=== PATIENT | female | born 1955 | race Caucasian/White ===

== ENCOUNTER 2019-08-24 16:42 | Inpatient (IN) | payer OTHER, MEDICAID ==
[~2019-08-24] VITALS: Ht 162.6 cm; Wt 73.0 kg
[~2019-08-24 16:42] MED LIST: LR 1,000 ML IV.SOLN IV ONE; MIDAZOLAM HCL 5 MG/5 ML VIAL IVP ONE; PROPOFOL 200MG/ 20ML VIAL (DIPRIVAN) IV ONE; WATER FOR IRRIGATION,STERILE 1,000 ML IRRIG.SOLN IR ONE
[2019-08-24 16:49] VITALS: BP_SYST 118
--- NOTE | 2019-08-24 16:49 | NUR ---
Patient to ER bed 6 to gown for evaluation. Side rails up. Assumed care.
--- NOTE | 2019-08-24 17:15 | NUR ---
Patient confused BIBA from [facility] for low hemoglobin. Patient is confused. Patient has PMH of diabetes, hyperlipidemia, hypothyroidism, COPD, anxiety, schizophrenia, and bipolar disorder. Respirations even and unlabored, skin warm/pink/dry, no signs or symptoms of acute distress noted.
--- NOTE | 2019-08-24 17:23 | NUR ---
ER Dr. Padilla at bedside examining patient.
--- NOTE | 2019-08-24 17:50 | NUR ---
Radiology at bedside.
--- NOTE | 2019-08-24 18:15 | NUR ---
Attempted to perform EKG but patient is uncooperative. Dr. Padilla aware.
[2019-08-24 18:22] LABS: BASOPHILS % (AUTO) 0.9 % (0.0-2.0); EOSINOPHILS # (AUTO) 0.1 K/uL (0.0-0.4); EOSINOPHILS % (AUTO) 1.8 % (0.0-4.0); HEMATOCRIT 24.6 % (36-48); HEMOGLOBIN 8.2 g/dL (12.0-16.0); LYMPHOCYTES # (AUTO) 1.5 K/uL (1.0-5.5); LYMPHOCYTES % (AUTO) 29.6 % (20.5-51.5); MEAN CORPUSCULAR HEMOGLOBIN 32 pg (27-31); MEAN CORPUSCULAR HGB CONC 33 % (32-36); MEAN CORPUSCULAR VOLUME 97 fL (79.0-98.0); MONOCYTES # (AUTO) 0.6 K/uL (0.0-1.0); MONOCYTES % (AUTO) 12.1 % (1.7-9.3); NEUTROPHILS # (AUTO) 2.8 K/uL (1.8-7.7); NEUTROPHILS % (AUTO) 55.6 % (40.0-70.0); PLATELET COUNT (AUTO) 246 K/uL (130-430); RED BLOOD CELL COUNT(AUTO) 2.54 MIL/uL (4.2-6.2); RED CELL DISTRIBUTION WIDTH 15.6 % (9.0-15.0); WHITE BLOOD COUNT (AUTO) 5.1 K/uL (4.8-10.8)
[2019-08-24 18:23] LABS: CALCIUM 9.4 mg/dL (8.4-11.0); CREATININE 1.19 mg/dL (0.55-1.30); POTASSIUM 4.4 mmol/L (3.5-5.1)
[2019-08-24 18:29] LABS: TOTAL BILIRUBIN 0.1 mg/dL (0.0-1.0)
[2019-08-24 18:31] LABS: PROTHROMBIN TIME 10.3 SECS (9.5-12.5)
--- NOTE | 2019-08-24 18:57 | NUR ---
Patient will be admitted to care of Dr. Gould. Admitted to telemetry unit. Belongings list completed. Summary report printed. Report will be given at bedside.
[2019-08-24] MEDS ORDERED: PANTOPRAZOLE SODIUM 80 MG in NS 100 ML IV ONE (19:00)
[2019-08-24] MEDS: KCL 20 mEq in D5/0.45NS 1000mL 1,000 ML IV SCH (19:00)
[2019-08-24] MEDS ORDERED: PANTOPRAZOLE SODIUM 40 MG in NS 50 ML IV ONE (19:00)
--- NOTE | 2019-08-24 19:42 | NUR ---
ADMISSION NOTES; pt. admitted from ER with abnormal labs,Hg 7.0, Diagnosis of generalized weakness. pt. greenlandic speaking, awake, alert but not talking. oriented to her room, safety measures initiated. IV lock on left hand. placed on manager cardiac cath and remove it. pt. non compliant. VS checked by charge nurse Ty.
[2019-08-24 19:45] VITALS: BP_SYST 145
[2019-08-24 20:00] VITALS: BP_SYST 145
--- NOTE | 2019-08-24 20:45 | NUR ---
NOTES: Dr. Gould here, seen pt. aware of pt. taking off, dc monitor , will be Med surg.
--- NOTE | 2019-08-24 22:03 | NUR ---
NOTES: pt. sleeping, no complaints noted. still waiting for IVF from nursing gang supervisor, charge nurse Ty needs to print out order. Addendum: 08/25/19 at 0554 by Kari De La Cruz RN late entry 2200 pt. refused SCD.
[2019-08-24] MEDS ORDERED: GLU500 PO (22:51)
[2019-08-24] MEDS ORDERED: CALC-827 PO (22:51)
[2019-08-24] MEDS ORDERED: FER300L PO (22:51)
[2019-08-24] MEDS ORDERED: RISP0.5T5 PO (22:51)
[2019-08-24] MEDS ORDERED: DOCU250C14 PO (22:51)
[2019-08-24] MEDS ORDERED: OMEG10006 PO (22:51)
[2019-08-24] MEDS ORDERED: DIVA500T4 PO (22:51)
[2019-08-24] MEDS ORDERED: PIOG45TA63 PO (22:51)
[2019-08-24] MEDS ORDERED: FERR-69 PO (22:54)
[2019-08-24] MEDS ORDERED: LEVO25TA2 PO (22:56)
[2019-08-24] MEDS ORDERED: KCL 20 mEq in D5/0.45NS 1000mL 1,000 ML IV ONE (23:06)
[2019-08-24] MEDS: PANTOPRAZOLE SODIUM 40 MG/VIAL (PROTONIX) IVP SCH (23:41)
--- NOTE | 2019-08-25 00:08 | NUR ---
CONSULTATION PAGED REASON FOR CONSULTATION: LOWER GI BLEEDING WAS CONSULT CALLED? YES PERSON WHO WAS NOTIFIED: VALERIA CONSULTING PHYSICIAN: ORESTES MORTICIAN HELPER SPECIALTY: GASTRO MORTICIAN HELPER PHONE NUMBER: [phone] ORDERING PHYSICIAN: DR. MAN
--- NOTE | 2019-08-25 00:23 | NUR ---
NOTES: pt. awakened,incontinent of urine, complete linen changed but getting combative and does not want to touch her, remove IV tubing , site pretty swollen, unable to reinsert since she is trying to hit, charge nurse Ty aware. pt. able to stand up when linen changed. , back to bed and set alarm on. unable to put SCD, pt. removed
[2019-08-25 00:46] VITALS: BP_SYST 141
--- NOTE | 2019-08-25 02:23 | NUR ---
NOTES: condition observed. pt, sleeping, continue to monitor,
--- NOTE | 2019-08-25 03:30 | NUR ---
NOTES: been sleeping, able to turn to sides.
--- NOTE | 2019-08-25 05:15 | NUR ---
NOTES: pt. wet with urine, pad changed and gown by PERLA Dela Cruz but does not want to be cleaned, gets irritated and agitated easily, talking but unable to understand most of her words. able to go restroom with stand by assist. Addendum: 08/25/19 at 0558 by Kari De La Cruz RN noted hump on her upper back up to the neck area when she stood up,unable to assess lakisha area since pt. does not want to be touch. (ER nurse endorsed there is redness on labia area due to incontinence)
--- NOTE | 2019-08-25 06:35 | NUR ---
CLOSING NOTES; resume IVF but pulled it out after few minutes, unable to reinsert coz she wont let me touch her.bed alarm on. close observation. for further care and assistance. Addendum: 08/25/19 at 0650 by Kari De La Cruz RN late entry 0649 some bleed on IV site, refused to put gauze and pressure on site, charge nurse Ty wilson.
--- NOTE | 2019-08-25 06:54 | NUR ---
NOTES: asked electrical/instrument technician/merchandise adjustment clerk to call Dr. Gould (told charge nurse Dida), will endorse to day shift.
--- NOTE | 2019-08-25 06:57 | NUR ---
NOTES: Dr. Gould called back and inform about pt. refusal of reinserting another one, said to put it back, will need 2 people to insert the IV. will endorse to day shift.
[2019-08-25 07:07] LABS: BASOPHILS % (AUTO) 0.2 % (0.0-2.0); EOSINOPHILS # (AUTO) 0.1 K/uL (0.0-0.4); HEMATOCRIT 26.6 % (36-48); LYMPHOCYTES # (AUTO) 1.5 K/uL (1.0-5.5); LYMPHOCYTES % (AUTO) 26.9 % (20.5-51.5); MEAN CORPUSCULAR HEMOGLOBIN 33 pg (27-31); MEAN CORPUSCULAR HGB CONC 34 % (32-36); MEAN CORPUSCULAR VOLUME 97 fL (79.0-98.0); MONOCYTES # (AUTO) 0.6 K/uL (0.0-1.0); MONOCYTES % (AUTO) 9.9 % (1.7-9.3); NEUTROPHILS # (AUTO) 3.4 K/uL (1.8-7.7); PLATELET COUNT (AUTO) 288 K/uL (130-430); RED BLOOD CELL COUNT(AUTO) 2.74 MIL/uL (4.2-6.2); RED CELL DISTRIBUTION WIDTH 16.1 % (9.0-15.0); WHITE BLOOD COUNT (AUTO) 5.6 K/uL (4.8-10.8)
--- NOTE | 2019-08-25 07:15 | NUR ---
RECEIVED REPORT AT THE BEDSIDE. BY THE IAN NURSE. PATIENT SPEAKS MOHAWK BUT GARBLED. LUNGS BILATERALLY CLEAR. ABDOMEN SOFT AND NON DISTENDED. BUT NO IV ACCESS NOTED. QUITE AND RESTING. BED LOW POSITION, ALARMED AND LOCKED. PATIENT QUITE WHEN NOT TOUCHED. CALL LIGHTS WITHIN REACH. PATIENT SPEAKS MOHAWK ONLY. NO SKIN BREAKDOWN NOTED. BOTH ARMS EDEMATOUS PLUS 1-2 NON PITTING NOTED.
[2019-08-25 07:41] LABS: CALCIUM 9.7 mg/dL (8.4-11.0); CREATININE 1.15 mg/dL (0.55-1.30); POTASSIUM 4.4 mmol/L (3.5-5.1)
[2019-08-25 07:43] VITALS: BP_SYST 139
--- NOTE | 2019-08-25 08:20 | NUR ---
NO DUE MEDICATION GIVEN AT THIS TIME. NO IV ACCESS NOTED.
[2019-08-25 08:39] LABS: TOTAL IRON BIND. CAPACITY 635 ug/dL (250-450)
--- NOTE | 2019-08-25 08:40 | NUR ---
DR MAN CALLED FOR RESTRAINT ORDER AND MEDICATION FOR AGITATION.
--- NOTE | 2019-08-25 08:54 | NUR ---
Nutrition Update Kvng Scale 16 noted. Pt admitted for lower GI bleed and anemia. Diet: NPO BMI: 27.5 kg/m2 RD to follow per nutrition care standards.
[2019-08-25] MEDS ORDERED: LORazepam 2 MG/ML VIAL IVP PRN (09:00)
--- NOTE | 2019-08-25 09:00 | NUR ---
DR UNGER CAME AND ORDERED TO HAVE UPPER ENDOSCOPY AND COLONOSCOPY TOMORROW AND NEEDS A CONSENT AND ANESTHESIA CONSENT.
--- NOTE | 2019-08-25 09:30 | NUR ---
NO DUE MEDICATION GIVEN AT THIS TIME.
--- NOTE | 2019-08-25 10:00 | NUR ---
CALLED FAMILY SAID WILL COME TO SIGNED FOR THE PROCEDURE IN AM
--- NOTE | 2019-08-25 11:00 | NUR ---
PLACED SCDS ON BOTH LEGS.
[2019-08-25 11:32] VITALS: BP_SYST 124
[2019-08-25 11:48] LABS: PROTHROMBIN TIME 10.4 SECS (9.5-12.5)
[2019-08-25 12:27] VITALS: BP_SYST 124
--- NOTE | 2019-08-25 12:34 | NUR ---
PLACED A NEW IV ACCESS ON THE LEFT HAND #22.
--- NOTE | 2019-08-25 14:00 | NUR ---
still on restraints bilaterally. assists on adls.
--- NOTE | 2019-08-25 15:00 | NUR ---
consent signed for upper endoscopy and colonoscopy tomorrow. and anesthesia consent signed as ordered by roberto turner
--- NOTE | 2019-08-25 16:18 | NUR ---
Net Developer: Met with pt. for a DCPA. GEOSCIENCES FACULTY MEMBER met with pt and pts. brother Per Lombardo, . Per was helpful as pt. was algerian speaking but additionally, she was not able to participate in this interview due to her mental status. Per stated Pt. can carry on a conversation. Pt. has Schizophrenia. Re. meds, Per stated pt will take her medicine if someone gives it to her. He stated pt. will probably return to her home at [facility]. Per was very attentive to pt asking if she was ok, needed anything. He stated he will come to see pt. tomorrow after work. GEOSCIENCES FACULTY MEMBER stated he could call the Rn. station to get an update of pts. procedures scheduled for tomorrow morning as per brother Per. MW will remain available as needed.
[2019-08-25] MEDS: KCL 20 mEq in D5/0.45NS 1000mL 1,000 ML IV SCH ×2 (16:32→23:45)
[2019-08-25] MEDS: PANTOPRAZOLE SODIUM 40 MG/VIAL (PROTONIX) IVP SCH ×2 (16:40→21:31)
[2019-08-25] MEDS ORDERED: BISACODYL 5 MG TABLET.DR (DULCOLAX) PO ONE (17:00)
--- NOTE | 2019-08-25 17:00 | NUR ---
dulcolax 2 tabs po given. brother still here.
--- NOTE | 2019-08-25 17:20 | NUR ---
started the mago po.
--- NOTE | 2019-08-25 17:42 | NUR ---
refusing to eat at this time.
[2019-08-25 17:45] VITALS: BP_SYST 132
--- NOTE | 2019-08-25 17:54 | NUR ---
called the brother Chema but no answer, the line is busy.
[2019-08-25] MEDS ORDERED: GOLYTELY / COLYTE SOLUTION 4 LITERS PO ONE (18:00)
--- NOTE | 2019-08-25 18:32 | NUR ---
called the brother but refused to answer. karol phoenix and micah tried to fed her, but refused.
--- NOTE | 2019-08-25 18:35 | NUR ---
closing notes: patient alert awake but confused and refusing to have clear liquid tonite. refused the golytely po. but started. still on bilateral wrist restraints. all needs are met. still with iv access on the left hand #22. with D51/2NS with 20meq of Kcl. at 75cc/hr infusing on well. bed in low position, alarmed and locked. will continue to monitor patients status.
--- NOTE | 2019-08-25 19:05 | NUR ---
OPENING NOTES RECEIVED PATIENT IN BED RESTING. BREATHING UNLABORED ON ROOM AIR. IVF INFUSING ORDERED. PATIENT ON BILATERAL SOFT WRIST RESTRAINTS FOR AGGRESSIVE BEHAVIOR. BED IN LOWEST LOCKED POSITION WITH ALARM ON. CALL LIGHT WITH IN REACH.
[2019-08-25 20:43] VITALS: BP_SYST 146
--- NOTE | 2019-08-25 21:31 | NUR ---
MED PASS PATIENT DUE MEDICATION GIVEN. IV LINE INTACT PATENT WITH GOOD BLOOD RETURN. VITAL SIGNS STABLE.
[2019-08-25] MEDS ORDERED: INSULIN REGULAR, HUMAN 100 UNITS/ML, 10 ML VIAL (humuLIN R) SUBCUT PRN (22:00)
--- NOTE | 2019-08-25 22:30 | NUR ---
HS CARE INCONTINENCE CARE DONE. PATIENT STILL REFUSING TO TAKE GOLYTELY. EVERY TIME A CUP OF GOLYTELY IS OFFERED PATIENT WOULD STRIKE AND HIT STAFF.
--- NOTE | 2019-08-25 23:00 | NUR ---
MD CALLED DR. UNGER CALLED CHECKING ON PATIENT BOWEL PREP. MD MADE AWARE PATIENT REFUSING GOLYTELY. ORDERED TO INSERT NASOGASTRIC TUBE AND GIVE GOLYTELY VIA NGT.
[2019-08-26] MEDS ORDERED: LORazepam 2 MG/ML VIAL IVP SCH (00:15)
[2019-08-26 00:36] VITALS: BP_SYST 135
--- NOTE | 2019-08-26 01:00 | NUR ---
NGT UNABLE TO INSERT NGT PATIENT RESISTING AND AGGRESSIVE TO STAFF EVEN AFTER ATIVAN ADMINISTRATION. OFFERED GOLYTELY TO DRINK STILL REFUSING.
--- NOTE | 2019-08-26 01:25 | NUR ---
MD CALLED DR UNGER AND MADE AWARE UNABLE TO INSERT NGT. PER MD HE CANT DO COLONOSCOPY LATER TODAY IF PT NOT PREP WILL JUST DO EGD. NO NEED TO GIVE TAP WATER ENEMA TILL CLEAR PER .
--- NOTE | 2019-08-26 03:08 | NUR ---
ROUNDS PATIENT RESTING. NO DISTRESS NOTED. IVF INFUSING.
--- NOTE | 2019-08-26 05:15 | NUR ---
AM CARE PATIENT HAD LARGE PASTY STOOL. AM CARE DONE. ALL LINENS CHANGED.
[2019-08-26 05:49] LABS: PROTHROMBIN TIME 10.4 SECS (9.5-12.5)
[2019-08-26] MEDS: LEVOTHYROXINE SODIUM 0.088 MG TABLET PO SCH (06:28)
--- NOTE | 2019-08-26 06:41 | NUR ---
CLOSING NOTES PATIENT RESTING IN BED. BREATHING UNLABORED ON ROOM AIR. DENIES PAIN THROUGHOUT SHIFT. IVF INFUSING WITH IV LINE INTACT AND PATENT. PATIENT NEEDS ATTENDED. BED IN LOWEST LOCKED POSITION WITH ALARM ON. CALL LIGHT WITH IN REACH.
--- NOTE | 2019-08-26 07:10 | NUR ---
received report at the bedside. by the jaron nurse. patient combative and agitated. alert and awake but confused. lungs bilaterally clear. breathing even and unlabored. still has iv access on the left hand #22 with IV fluids of D51/2NS +20kcl at 75cc/hr infusing on well. has another iv access left wrist #22. saline lock. no skin breakdown noted. both arms edematous x 1-2 non pitting edema noted. will continue to monitor patients status.
[2019-08-26] MEDS ORDERED: SIMETHICONE 40 MG/0.6 ML ML ONE (07:24)
--- NOTE | 2019-08-26 07:30 | NUR ---
patient pickling grader by gi crew for upper endoscopy. spoke to dr cora mejia. and said will not do colonoscopy due to patient uncooperativeness. refused to drink the golyletyly.
[2019-08-26] MEDS ORDERED: LR 1,000 ML IV SCH (08:02)
[2019-08-26 08:35] VITALS: BP_SYST 111
[2019-08-26 08:37] LABS: FOLATE (FOLIC ACID) 18.5 ng/mL (>3.0)
[2019-08-26] MEDS: DOCUSATE SODIUM 250 MG CAPSULE PO SCH (09:00)
[2019-08-26] MEDS: DIVALPROEX SODIUM 500 MG TAB.SR.24H (DEPAKOTE ER) PO SCH ×2 (09:00→21:00)
--- NOTE | 2019-08-26 09:00 | NUR ---
po medication not given patient refusing.
--- NOTE | 2019-08-26 10:00 | NUR ---
due medication given at this time.
[2019-08-26] MEDS: PANTOPRAZOLE SODIUM 40 MG/VIAL (PROTONIX) IVP SCH ×2 (11:05→21:26)
--- NOTE | 2019-08-26 12:00 | NUR ---
able to eat about 60% of food and fed by Bindu Smith
[2019-08-26] MEDS: KCL 20 mEq in D5/0.45NS 1000mL 1,000 ML IV SCH (12:09)
[2019-08-26 12:21] VITALS: BP_SYST 112
--- NOTE | 2019-08-26 14:18 | NUR ---
patient has still bilateral wrist restraint. both arms.
--- NOTE | 2019-08-26 15:45 | NUR ---
had bowel movement large amount greenish blackish. clean up no skin breakdown noted.
[2019-08-26 16:06] VITALS: BP_SYST 119
--- NOTE | 2019-08-26 17:13 | NUR ---
quite but trying to moved about and raised both arms and legs and trying to removed iv lines and scds. and refused to eat foods.
--- NOTE | 2019-08-26 17:46 | NUR ---
Dietitian Recommendations * Continue clear liquid diet with Ensure Clear TID (720 kcal/day and 24 gm protein/day). * Advance to regular diet if/when medically appropriate. * Encourage PO intake. CRISTIAN, ROMELIA Please refer to Nutrition Assessment for details. Signed: 08/26/19 at 1746 by Shireen BATISTA <Co-Signature Required> Co-Signed: 08/26/19 at [address] Addendum: 08/26/[id number] by Shireen BATISTA Amended: Links added.
--- NOTE | 2019-08-26 18:04 | NUR ---
latest bs 75mg/dl. no insulin coverage and refusing to be fed and eat. called the brother. but no answer yet
--- NOTE | 2019-08-26 18:36 | NUR ---
still offered the food for dinner refused.
--- NOTE | 2019-08-26 18:57 | NUR ---
dr sandoval came and informed what happened with the patient no iv access and said will call dr krishnamurthy regarding changing iv to po Addendum: 08/26/19 at 1943 by Amy Liu RN NOT THIS PATIENT. THANKS
--- NOTE | 2019-08-26 19:00 | NUR ---
PLEASE INFORMED REGARDING THE PATIENT NOT EATING. BUT EAT LUNCH TIME. 80% OF FOOD TAKEN. AND COLONOSCOPY NOT DONE TO PATIENT VERY UNCOOPERATIVE.
--- NOTE | 2019-08-26 19:30 | NUR ---
SBAR REPORT GIVEN TO NU AYOUB.
--- NOTE | 2019-08-26 19:35 | NUR ---
OPENING NOTES Patient resting, eyes closed, restraints in place. No signs of respiratory distress observed. IV in Right hand patent, no signs of inflammation or infiltration observed. SCDs on. Call light within reach, bed alarm on, and bed at lowest position. Will continue to monitor.
[2019-08-26 20:00] VITALS: BP_SYST 129
--- NOTE | 2019-08-26 21:41 | NUR ---
Patient refused medications. Patient teaching performed, but patient confused and started to swing arms even when on restraints and will not allow for glucose check as well. Will check blood sugar when patient is less agitated. Will continue to monitor.
--- NOTE | 2019-08-26 22:02 | NUR ---
Perineal care performed and blood sugar of 116, no insulin provided per sliding scale. No signs of respiratory distress at this time. Safety precautions in place. Will continue to monitor.
[2019-08-26] MEDS ORDERED: IRON SUCROSE COMPLEX 100 MG/5 ML VIAL IV ONE (23:15)
[2019-08-26] MEDS: IRON SUCROSE COMPLEX 100 MG in NS 100 ML IV SCH (23:40)
--- NOTE | 2019-08-27 00:13 | NUR ---
Patient is restless, kicking her feet. Patient has eyes closed, restraints in place, 10 minutes of relief provided. Safety precautions in place. Will continue to monitor.
--- NOTE | 2019-08-27 00:43 | NUR ---
CONSULTATION PAGED/CALLED Reason for Consultation: PSYCHOSIS Person Who was Notified: ISI Consulting Physician: GUERO, SENT OUT TO [facility] Cash Applications Coordinator Specialty: Ordering Physician: MAGDA
--- NOTE | 2019-08-27 02:40 | NUR ---
Patient is resting, HOB elevated. no signs of acute respiratory distress observed. Safety precautions in place. Will continue to monitor.
[2019-08-27] MEDS: KCL 20 mEq in D5/0.45NS 1000mL 1,000 ML IV SCH ×2 (03:42→14:57)
--- NOTE | 2019-08-27 04:16 | NUR ---
Perineal care provided, patient pinches and kicks even with patient orientation and thorough explanations. Patient also tries to hit with head. Restraints in place. Patient now clean and linens changed. Patient offered liquids like ensure or water, and patient refuses. IVF running, no signs of inflammation or infiltration at IV site. SCDs in place. Safety precautions in place. Will continue to monitor.
[2019-08-27 04:25] VITALS: BP_SYST 133
--- NOTE | 2019-08-27 06:02 | NUR ---
Blood sugar of 137, no insulin provided per sliding scale. Patient is not cooperative and is swinging arms and kicks feet when trying to give water or ensure. Unable to provide PO medications. Will endorse care to oncoming shift.
[2019-08-27] MEDS: LEVOTHYROXINE SODIUM 0.088 MG TABLET PO SCH (06:03)
--- NOTE | 2019-08-27 06:12 | NUR ---
Ayesha from LAB called to report that patient's blood had hemolyzed so another specimen will be taken. Will endorse to next shift.
[2019-08-27 06:27] LABS: BASOPHILS % (AUTO) 0.6 % (0.0-2.0); EOSINOPHILS # (AUTO) 0.1 K/uL (0.0-0.4); EOSINOPHILS % (AUTO) 1.2 % (0.0-4.0); HEMATOCRIT 28.2 % (36-48); HEMOGLOBIN 9.5 g/dL (12.0-16.0); LYMPHOCYTES % (AUTO) 19.4 % (20.5-51.5); MEAN CORPUSCULAR HEMOGLOBIN 33 pg (27-31); MEAN CORPUSCULAR HGB CONC 34 % (32-36); MEAN CORPUSCULAR VOLUME 98 fL (79.0-98.0); MONOCYTES # (AUTO) 0.5 K/uL (0.0-1.0); MONOCYTES % (AUTO) 9.7 % (1.7-9.3); NEUTROPHILS # (AUTO) 3.4 K/uL (1.8-7.7); NEUTROPHILS % (AUTO) 69.1 % (40.0-70.0); PLATELET COUNT (AUTO) 269 K/uL (130-430); RED BLOOD CELL COUNT(AUTO) 2.89 MIL/uL (4.2-6.2)
--- NOTE | 2019-08-27 07:15 | NUR ---
Note Dr Nina at bedside. Pt refuses to answer any questions and aggressive behavior assessed at this time.
--- NOTE | 2019-08-27 07:30 | NUR ---
CLOSING NOTES Patient is resting, eyes open. No signs of acute respiratory distress. Restraints in place. Safety precautions in place. Will endorse care to oncoming shift.
[2019-08-27 07:47] VITALS: BP_SYST 150
[2019-08-27] MEDS: DIVALPROEX SODIUM 500 MG TAB.SR.24H (DEPAKOTE ER) PO SCH ×2 (09:00→21:55)
[2019-08-27] MEDS: DOCUSATE SODIUM 250 MG CAPSULE PO SCH (09:00)
--- NOTE | 2019-08-27 09:15 | NUR ---
Note Pt refuses any breakfast or to take any of her PO medications at this time. restraints on bilateral wrists. No SOB/resp distress or pain/discomfort noted at this time. IV in left forearm intact and patent infusing well at this time. No needs noted at this time. Pt drowsy all shift. Call light within reach.
[2019-08-27] MEDS: PANTOPRAZOLE SODIUM 40 MG/VIAL (PROTONIX) IVP SCH ×2 (09:35→21:46)
--- NOTE | 2019-08-27 10:01 | NUR ---
ATTENDING MD DR Rasta EPPERSON WAS PAGED RE: PT REFUSED ECHO TEST, LABS AND MEDICATIONS INTAKE. SPOKE TO KEELEY. Addendum: 08/27/19 at 1007 by Sarika Kam RI/ ERASE ---WRONG PT INTENDED FOR 132C
--- NOTE | 2019-08-27 11:10 | NUR ---
Note Dr Gould was made aware that pt refusing PO medications and breakfast. Dr Monzon came to bedside at 1040am to do assessment at this time. Pt next to nurses' station for close observation all shift foe needs and care. Sitter in room. Call light within reach.
[2019-08-27 12:00] VITALS: BP_SYST 132
[2019-08-27 13:34] LABS: CALCIUM 8.7 mg/dL (8.4-11.0); CREATININE 1.09 mg/dL (0.55-1.30); FREE T4 (FREE THYROXINE) 0.7 ng/dl (0.8-1.5); PHOSPHORUS 3.2 mg/dL (2.7-4.5); POTASSIUM 4.2 mmol/L (3.5-5.1); THYROID STIMULATING HORMONE 10.27 uIu/mL (0.36-3.74)
--- NOTE | 2019-08-27 14:55 | NUR ---
Note Dr Gould on the floor and at pt's bedside. Again notified pt refuses to take any PO medications or eat any breakfast/lunch. Pt continues to pull at IV lines and bed clothes all the time. IVF's infusing well all shift through left forearm IV site. No needs noted at this time.
--- NOTE | 2019-08-27 15:42 | NUR ---
Discharge Planning: DCP faxed pt referral to [facility] (f [phone] p [phone]) DCP to follow up
[2019-08-27 17:16] VITALS: BP_SYST 135
--- NOTE | 2019-08-27 17:29 | NUR ---
Note Pt still refuses to eat or drink any food. Pt shakes her head "no" to everything. No needs noted at this time. IV in left forearm intact and patent infusing IVF's well. Pt has had soft wrist restraints on bilateral wrists all shift.
--- NOTE | 2019-08-27 18:25 | NUR ---
Note Pt ate 50% of her dinner tray - maximum assist. Pt resting in bed at this time. Received a call from Yehuda at this time from [facility]. They will accept pt back to facility tomorrow morning after 11am. Person to contact will be Tam [phone]. mdm sr - Coty made aware of transfer back to [facility] in the am. Pt was given hygiene care for urine incontinence. No needs noted at this time. Pt had sitter at bedside all shift for needs and care. Call light within reach.
[2019-08-27 20:30] VITALS: BP_SYST 125
--- NOTE | 2019-08-27 20:30 | NUR ---
Opening notes Pt asleep, easily arousable. VSS, no s/s distress noted. IVF infusing at ordered rate L. hand 22G clear and patent. Call light within reach. Bed low, locked, siderails up, bed alarm on. Pt placed close to nursing station. To monitor.
[2019-08-27] MEDS: IRON SUCROSE COMPLEX 100 MG in NS 100 ML IV SCH (21:46)
--- NOTE | 2019-08-27 21:49 | NUR ---
Med pass/Blood sugar check Pt awake, calm, pt HOB elevated and scheduled meds given with jello, pt tolerated well. Blood sugar checked 134, no insulin needed per ss protocol. To monitor.
[2019-08-28 00:42] VITALS: BP_SYST 149
--- NOTE | 2019-08-28 01:27 | NUR ---
Rounds Pt asleep, easily arousable, calm. No s/s distress noted. IVF infusing at ordered rate L hand 22G no s/s infiltration noted. Safety measures in place. To monitor.
[2019-08-28] MEDS: KCL 20 mEq in D5/0.45NS 1000mL 1,000 ML IV SCH ×3 (03:00→23:47)
--- NOTE | 2019-08-28 03:30 | NUR ---
F/U influenza vaccine Called [facility] [phone] to f/u if pt had flu shot and per staff office is closed at this time. To endorse to AM nurse.
--- NOTE | 2019-08-28 04:35 | NUR ---
Rounds Pt asleep, no s/s distress noted. Call light within reach. Bed low, locked, siderails up. To monitor.
--- NOTE | 2019-08-28 06:00 | NUR ---
Closing notes Pt awake, confused, calm. Restraints DC'd. No s/s distress noted. IVF infusing at ordered rate L hand 22G clear and patent. Pt incontinent of urine. Pericare and linens changed with WRAPPING CHECKER assist. Pt refused SCDs at this time. Call light within reach. Safety measures in place, bed alarm on. To endorse to AM nurse.
[2019-08-28] MEDS: LEVOTHYROXINE SODIUM 0.088 MG TABLET PO SCH (06:36)
--- NOTE | 2019-08-28 08:00 | NUR ---
RN INITIAL NOTES RECEIVED PATIENT IN BED NO DISTRESS PATIENT IS ANXIOUS AND IRRITABLE , PATIENT WRIST RESTRAIN REMOVED WITH 2 IV LINE TO LEFT HAND INFUSING WITH KCL INC ORDERED WILL CONT CARE WILL CALL SNF TO VERIFY FLU VACCINE AND AWAITING FOR MD TO GIVE DC ORDER BACK TO SNF
[2019-08-28] MEDS: DOCUSATE SODIUM 250 MG CAPSULE PO SCH ×2 (09:00→09:40)
[2019-08-28] MEDS: DIVALPROEX SODIUM 500 MG TAB.SR.24H (DEPAKOTE ER) PO SCH ×3 (09:00→23:47)
[2019-08-28] MEDS: PANTOPRAZOLE SODIUM 40 MG/VIAL (PROTONIX) IVP SCH ×2 (09:39→23:47)
[2019-08-28] MEDS ORDERED: FLU VACC TS2019(65UP)/MF59C/PF 45 MCG/0.5 ML SYRINGE I.M. PRN (09:45)
--- NOTE | 2019-08-28 10:00 | NUR ---
FLU VACCINE GIVEN / REFUSAL PO MEDS PATIENT BROTHER DARIELA CALLED AND UPDATED FOR PATIENT CONDITION AND STATED PATIENT DID NOT HAVE FLU VACCINE FOR THE FACILITY MAY GIVE NOW , ALSO PATIENT REFUSED FLU VACCINE Addendum: 08/28/19 at 1137 by Mely Amador RN CORRECTION PATIENT REFUSED PO MEDS BUT ABLE TO GIVE FLU VACCINE AND IV MEDS AWAITING FOR MD ROUNDS FOR DC PLANNING
[2019-08-28 12:19] VITALS: BP_SYST 145
[2019-08-28 12:24] VITALS: BP_SYST 111
--- NOTE | 2019-08-28 12:30 | NUR ---
REFUSAL OF BLOOD SUGAR CHECK PATIENT REFUSED TO HAVE BLOOD SUGAR CHECK
--- NOTE | 2019-08-28 14:00 | NUR ---
ROUNDS PATIENT INTERMITTENTLY AWAKE AND NO FACIAL GRIMACE NOTED
--- NOTE | 2019-08-28 16:00 | NUR ---
ASLEEP STILL WAITING FOR THE ROUNDS OF DR MAN CHARGE NURSE MADE AWARE CONT WITH KCL IVF
[2019-08-28 16:53] VITALS: BP_SYST 135
--- NOTE | 2019-08-28 18:02 | NUR ---
Nutrition Follow Up RD reviewed pt's current EMR including diet hx, physician notes, nursing notes, pertinent labs/meds/procedures, care trends and care activity. Current diet order: Clear Liquid x 2 days PO intake 25% x 3 meals, 1 episode of refusal Subjective Information: Pt is s/p EGD 08/26, found mild gastritis per physician notes. Per MD, colonoscopy not recommended at this time. Per nursing, pt is not tolerating diet well, refusing meds. Seen by psychiatry 08/27. Pt seen resting in bed, not verbally responsive to RD questions. Ensure Clear noted at bedside, with about 25% consumed. No nausea, vomiting, or diarrhea at this time per nursing. RD will hold off on appetite stimulant recommendation due to refusal of meds. Estimated Energy Expenditure (kcals/day) 9161-1757 kcal/day (25-30 kcal/kg ABW for geriatric maintanence) Estimated Protein Required (g/day) 59-71 gm/day (1-1.2 gm/kg ABW for geriatric maintenance) Estimated Fluid Required (l/day) 2.2-2.6 L/day (30-35 ml/kg CBW for geriatric maintanence) Problem/Etiology/Signs/Symptoms Suboptimal PO intake related to lack of appetite as evidenced by PO intake of 0% and RN report pt is not eating. *improving Expected Outcomes/Goals - Monitor appetite and PO intake w/ goals of pt meeting greater than 50% of estimated nutritional needs, labs trending WNL, and skin integrity/wt maintenance. Dietitian Recommendations * Continue clear liquid diet with Ensure Clear TID (720 kcal/day and 24 gm protein/day). * Advance to regular diet if/when medically appropriate. * Encourage PO intake. * If PO intake does not improve at follow up, consider NGT Jevity 1.2 at 45ml/hr with 160ml FWF Q4H Provides 1296kcal, 60gPro, 1832ml fluids per day. Meets: 88% of lower end of kcal est nutrition needs, 100% of protein est nutrition needs. Follow Up High Risk: F/U in 2-3days LT, RD
--- NOTE | 2019-08-28 18:05 | NUR ---
REFUSAL OF BLOOD SUGAR CHECK /ENDORSEMENT PATIENT REFUSED TAKE ANOTHER PM BLOOD SUGAR CHECK , PATIENT SPITTING AND SHOUT AT ME, WILL CONT TO MONITOR CAN"T TOUCH THE PATIENT AT THIS TIME SHE IS ANGRY AND REFUSED TO EAT A THIS TIME , WILL COTNWITH IVF ORDERED AND NOTIFY MD ON ROUNDS
--- NOTE | 2019-08-28 18:19 | NUR ---
Dietitian Recommendations * Continue clear liquid diet with Ensure Clear TID (720 kcal/day and 24 gm protein/day). * Advance to regular diet if/when medically appropriate. * Encourage PO intake. * If PO intake does not improve at follow up, consider NGT Jevity 1.2 at 45ml/hr with 160ml FWF Q4H Provides 1296kcal, 60gPro, 1832ml fluids per day. Meets: 88% of lower end of kcal est nutrition needs, 100% of protein est nutrition needs. Please see Nutrition Follow Up for details. LT, RD
[2019-08-28 20:59] VITALS: BP_SYST 137
--- NOTE | 2019-08-28 21:40 | NUR ---
ENCOURAGE REPOSITION & TURNING OFF LOADING PATIENT REFUSE CARE FALL MEASURES IMPLEMENTED BED ALARM ON FOR SAFETY .
--- NOTE | 2019-08-28 22:45 | NUR ---
NEW IV LEFT F/A 22 GAUGE PATIENT DOES REFUSE BEDSIDE CARE BED ALARM ON .
[2019-08-28] MEDS: IRON SUCROSE COMPLEX 100 MG in NS 100 ML IV SCH (23:48)
[2019-08-29] VITALS (7 sets, daily range): BP systolic 124–146
--- NOTE | 2019-08-29 | NUR ---
REFUSAL , RIP IV OUT LEFT F/A PROCEDURES EXPLAINED , PATIENT YELLING OUT .
--- NOTE | 2019-08-29 00:12 | NUR ---
BSG BLOOD SUGAR GLUCOSE 120 mg dl , ENSURE DRINK GIVEN PO assist as needed .
--- NOTE | 2019-08-29 03:11 | NUR ---
HOURLY ROUNDING PATIENT AWAKE ON AND OFF DOES REFUSE CARE AT TIMES BED TO LOW POSITION , ALARM IS ON .
[2019-08-29] MEDS: LEVOTHYROXINE SODIUM 0.088 MG TABLET PO SCH (06:18)
--- NOTE | 2019-08-29 06:19 | NUR ---
patient yelling out & Refuse AM MEDICATIONS .
[2019-08-29 06:36] LABS: BASOPHILS % (AUTO) 0.6 % (0.0-2.0); EOSINOPHILS # (AUTO) 0.1 K/uL (0.0-0.4); HEMATOCRIT 29.1 % (36-48); HEMOGLOBIN 9.7 g/dL (12.0-16.0); LYMPHOCYTES # (AUTO) 1.1 K/uL (1.0-5.5); MEAN CORPUSCULAR HEMOGLOBIN 32 pg (27-31); MEAN CORPUSCULAR HGB CONC 33 % (32-36); MEAN CORPUSCULAR VOLUME 97 fL (79.0-98.0); MONOCYTES # (AUTO) 0.8 K/uL (0.0-1.0); NEUTROPHILS % (AUTO) 71.4 % (40.0-70.0); PLATELET COUNT (AUTO) 286 K/uL (130-430); RED BLOOD CELL COUNT(AUTO) 2.99 MIL/uL (4.2-6.2); RED CELL DISTRIBUTION WIDTH 15.7 % (9.0-15.0)
[2019-08-29 07:08] LABS: CALCIUM 8.7 mg/dL (8.4-11.0); POTASSIUM 4.3 mmol/L (3.5-5.1)
--- NOTE | 2019-08-29 08:00 | NUR ---
RN INITIAL NOTES RECEIVED PATIENT IN BED AWAKE BUT SNUBBISH SHE JUST NOD HERSELF AND TURNED HER FACE AWAY WHEN BEING TALKED TO , IVF TO LEFT ARM INFUSING KCL ORDERED UNABLE TO ASSESSED PATIENT AT THIS TIME DT COMBATIVE WHEN TOUCHED PATIENT SAID NO TO PO MEDS BUT ABLE TO GIVE PROTONIX IV , WILL CONTINUE TO MONITOR REFUSED SCD APPLICATION AND REFUSED BREAKFAST TOOK A SMALL SIPS OF SUPPLEMENT THEN SAID NO , RESP EVEN AND UNLABORED RISE AND FALL OF THE CHEST NOTED NO ACUTE DISTRESS AT THIS TIME, AWAITING FOR THE DR TO COME VISIT PATIENT
[2019-08-29] MEDS: DIVALPROEX SODIUM 500 MG TAB.SR.24H (DEPAKOTE ER) PO SCH ×2 (09:00→21:35)
[2019-08-29] MEDS: DOCUSATE SODIUM 250 MG CAPSULE PO SCH (09:00)
[2019-08-29] MEDS: PANTOPRAZOLE SODIUM 40 MG/VIAL (PROTONIX) IVP SCH ×2 (09:33→21:35)
--- NOTE | 2019-08-29 11:38 | NUR ---
ATTENDING MD DR ELDER WAS CALLED RE: DISCHARGE ORDER, PT HAS BED . SPOKE TO BEAR
--- NOTE | 2019-08-29 11:53 | NUR ---
REFUSAL OF BLOOD SUGAR PATIENT REFUSED BLOOD SUGAR CHECK NO S/S OF HYPO/HYPERGLYCEMIC REACTION
--- NOTE | 2019-08-29 14:00 | NUR ---
DR GEM WHITMAN ORDERED FOR THE STAT UA WITH IN AND OUT COLLECTION ,PRIOR PATIENT DC TO SNF AND MADE AWARE THAT PATIENT, SENT UA TO LAB,WILL START PO ATB
[2019-08-29 15:23] LABS: BILIRUBIN,URINE NEGATIVE (NEGATIVE); CLARITY/URINE CLEAR (CLEAR); COLOR,URINE YELLOW (YELLOW); GLUCOSE,URINE NEGATIVE (NEGATIVE); KETONES,URINE NEGATIVE (NEGATIVE); LEUKOCYTE ESTERASE ,URINE 2+ (NEGATIVE); NITRITE, URINE POSITIVE (NEGATIVE); PROTEIN URINE NEGATIVE (NEGATIVE)
[2019-08-29 15:25] LABS: BLOOD, URINE TRACE (NEGATIVE)
[2019-08-29 15:31] LABS: BACTERIA,URINE MANY /HPF (None Seen); MUCUS,URINE 1+ /LPF (None Seen); WBC,URINE >100 /HPF (0-3); YEAST,URINE Few /HPF (None Seen)
[2019-08-29] MEDS ORDERED: CIPROFLOXACIN HCL 500 MG TABLET PO ONE (16:00)
[2019-08-29] MEDS ORDERED: CIPR-211 PO (16:41)
--- NOTE | 2019-08-29 17:30 | NUR ---
dc order pt has a discharge order, follow up with caser in, Libby said, she will call us once arrangement made to snf.
--- NOTE | 2019-08-29 18:13 | NUR ---
D/C PLANNING RECEIVED CM ORDER FOR D/C SNF PATIENT FROM [facility] SPOKE WITH SOFTWARE APPLICATIONS DEVELOPER AND ADMISSIONS MARIA ISABEL PHONE NUMBER [phone] REQUESTED REFAX TO [phone]. HE WILL REVIEW AND CALL NURSES STATION WITH ROOM NUMBER.
--- NOTE | 2019-08-29 18:52 | NUR ---
ENDORSEMENT WILL ENDORSE TO NEXT SHIFT CONT CARE 'PATIENT IS AWAITING FOR THE CALL OF SNF , PER CHARGE NURSE SNF WILL [facility] BACK ONCE PATIENT IS OK TO BE TRANSFERRED BACK TO SNF , INFORMED DR ELDER THAT PATIENT STILL HERE AND TOOK HALF OF THE CIPRO PO ATB BUT SAID GO AHEAD DC PATIENT TO SNF WILL ENDORSE TO NEXT SHIFT TO FOLLOW UP CALL TO SNF , AT THIS TIME UNABLE TO RESTART IV ACCESS BEC PATIENT PULLED IV 3 X ALREADY , SHE ALSO SPIT AND SHOUTS , WILL ENDORSE TO NEXT SHIFT TO CONT CARE .
--- NOTE | 2019-08-29 20:56 | NUR ---
RE - INSERTION IV LEFT F/A 22 G PATIENT IS AGITATED BED ALARM ON PATIENT YELLING OUT FALL MEASURES INPLACE / .
--- NOTE | 2019-08-29 20:57 | NUR ---
FREQUENT VISUAL MONITOR FOR SAFETY FALL MEASURES BED ALARM IS ON .
[2019-08-29] MEDS: CIPROFLOXACIN HCL 500 MG TABLET PO SCH (21:34)
[2019-08-29] MEDS: IRON SUCROSE COMPLEX 100 MG in NS 100 ML IV SCH (21:36)
[2019-08-29] MEDS: KCL 20 mEq in D5/0.45NS 1000mL 1,000 ML IV SCH (21:38)
--- NOTE | 2019-08-30 01:46 | NUR ---
PATIENT YELLING OUT KICKING OUT DID PULL OUT IV , THROUGH LININ ON FLOOR FREQUENTLY .
--- NOTE | 2019-08-30 01:47 | NUR ---
DR JERROD WHITMAN IS AWARE PATIENT REFUSE IV & PULLING RIP IV OUT .
--- NOTE | 2019-08-30 05:08 | NUR ---
RANDIIN CHANGE PATIENT YELLING OUT SPITING REFUSING CARE , BED ALARM ON SAFETY MEASURES IMPLEMENTED .
[2019-08-30] MEDS: LEVOTHYROXINE SODIUM 0.088 MG TABLET PO SCH (05:56)
--- NOTE | 2019-08-30 05:57 | NUR ---
PATIENT REFUSED AM MEDS YELLING OUT , SPITING .
--- NOTE | 2019-08-30 07:45 | NUR ---
Opening note patient resting in bed, a/ox1, reoriented to time, place, and event, she denies pain, patient did not allow for full assessment of skin, patient refused vital signs at this time, provided education, she still refuses, no IV line present, patient is refusing, according to NOC shift nurse MD is aware of this, continuing to follow up with discharge planning, continuing to monitor the patient, bed in lowest position, three side rails up, bed alarm on, bed close to nursing station, fall and aspiration precautions in place.
--- NOTE | 2019-08-30 08:26 | NUR ---
RN rounds/patient refusing care patient resting in bed, awake, refusing breakfast, refuses vital signs to be taken, refusing assistance, continuing to monitor, bed in lowest position, three side rails up, bed alarm on, bed close to nursing station, fall and aspiration precautions in place.
[2019-08-30] MEDS: DOCUSATE SODIUM 250 MG CAPSULE PO SCH (09:00)
[2019-08-30] MEDS: PANTOPRAZOLE SODIUM 40 MG/VIAL (PROTONIX) IVP SCH (09:00)
[2019-08-30] MEDS: DIVALPROEX SODIUM 500 MG TAB.SR.24H (DEPAKOTE ER) PO SCH (09:00)
[2019-08-30] MEDS: CIPROFLOXACIN HCL 500 MG TABLET PO SCH (09:34)
[2019-08-30 09:50] VITALS: BP_SYST 131
--- NOTE | 2019-08-30 10:36 | NUR ---
RN rounds/DC planning patient resting in bed, awake, denies pain, refusing to eat breakfast still, refusing vital signs, continuing to monitor, following up with DC planning for SNF for today, paged for med rec back to SNF, will follow up, patient bed in lowest position, three side rails up, bed alarm on, bed close to nursing station, fall and aspiration precautions in place.
--- NOTE | 2019-08-30 10:47 | NUR ---
Spoke with Dr. Luis Fernando romo to discharge the patient back to SNF, continue home medications.
--- NOTE | 2019-08-30 10:54 | NUR ---
Discharge Planning: DCP arranged transportation with [facility] ([phone]) 12:45pm P/U to [place] (f [phone] p [phone]) Rm 6C. Patient packet taken to nurse station nurse made aware.
[2019-08-30 12:00] VITALS: BP_SYST 131
--- NOTE | 2019-08-30 12:05 | NUR ---
RN rounds patient resting in bed, prepared for discharge back to SNF, attempted to call the family, no answer, voicemail left at this time, patient blood glucose checked, no insulin coverage per MD orders, continuing to monitor, bed in lowest position, two side rails up, bed alarm on, bed close to nursing station, fall and aspiration precautions in place.
--- NOTE | 2019-08-30 12:12 | NUR ---
Attempt to call family called the patient's brother Per (second attempt) - left one voicemail - [phone] called the patient's sister Maya (first attmept) - could not leave voicemail - [phone] needing to inform of discharge to facility Addendum: 08/30/19 at 1218 by Wayne Rodney RN Per called back, informed him of discharge, he is agreeable.
--- NOTE | 2019-08-30 12:45 | NUR ---
Called Report to [facility], spoke with Gladis AYOUB - [phone].
--- NOTE | 2019-08-30 13:47 | NUR ---
PT TRANSFERRED Transfer packet with Transfer Orders and Medication Reconciliation form given to EMT with report. Exitcare provided. [facility] ID band removed, replaced with ID band with pt's name and . All belongings sent with patient. Patient left floor via gurney escorted by EMT in no distress. PATIENT LEFT UNIT AT 1325.
== END 2019-08-30 13:25 | DRG 378 ==
LOC: SED 16:42 → STU 18:54 → SMU 22:05
PROVIDERS: ADMIT Family Medicine; ATTEND Family Medicine
PROC: 0DB98ZX Excision of Duodenum, Via Natural or Artificial Opening Endoscopic, Diagnostic (ICD-10-PCS; 2019-08-26)
PROC: 0DB78ZX Excision of Stomach, Pylorus, Via Natural or Artificial Opening Endoscopic, Diagnostic (ICD-10-PCS; principal; 2019-08-26 07:30)
DX: K29.71 Gastritis, unspecified, with bleeding (principal); E44.1 Mild protein-calorie malnutrition; F03.90 Unspecified dementia, unspecified severity, without behavioral disturbance, psychotic disturbance, mood disturbance, and anxiety; F20.9 Schizophrenia, unspecified; E11.9 Type 2 diabetes mellitus without complications; J44.9 Chronic obstructive pulmonary disease, unspecified; K21.9 Gastro-esophageal reflux disease without esophagitis; D50.9 Iron deficiency anemia, unspecified; E03.9 Hypothyroidism, unspecified; M19.90 Unspecified osteoarthritis, unspecified site; Z78.1 Physical restraint status; Z68.27 Body mass index [BMI] 27.0-27.9, adult; Z79.899 Other long term (current) drug therapy
CPT/HCPCS: 36415; 71045; 80048; 80053; 81000-TC; 82607; 82728; 82746; 82962; 83540-TC; 83550-TC; 83735-TC; 84100-TC; 84439; 84443-TC; 85025; 85610-TC; 85730-TC; 86886; 86900; 86901; 87081; 88305; 88312; 88313; 99285; C9113; J1756; J1815; J2060; J2250; J2704; J7120

== ENCOUNTER 2023-02-13 13:23 | Inpatient (IN) | payer OTHER, MEDICAID ==
[~2023-02-13] VITALS: Ht 154.9 cm; Wt 68.0 kg
[~2023-02-13 13:23] MED LIST changes: +CALC-827 PO; +CIPR500T5 PO; +DIVA500T4 PO; +DOCU250C14 PO; +FERR-69 PO; +GLU500 PO; +LEVO25TA2 PO; -LR 1,000 ML IV.SOLN IV ONE; -MIDAZOLAM HCL 5 MG/5 ML VIAL IVP ONE; +OMEG10006 PO; +PIOG45TA63 PO; -PROPOFOL 200MG/ 20ML VIAL (DIPRIVAN) IV ONE; +RISP0.5T5 PO; -WATER FOR IRRIGATION,STERILE 1,000 ML IRRIG.SOLN IR ONE
[2023-02-13 13:25] VITALS: BP_SYST 114
[2023-02-13] MEDS ORDERED: CRAN450T9 PO (14:14)
[2023-02-13] MEDS ORDERED: RISP0.5T5 PO (14:14)
[2023-02-13 16:14] LABS: BILIRUBIN,URINE NEGATIVE (NEGATIVE); BLOOD, URINE NEGATIVE (NEGATIVE); CLARITY/URINE CLEAR (CLEAR); COLOR,URINE YELLOW (YELLOW); GLUCOSE,URINE NEGATIVE (NEGATIVE); KETONES,URINE NEGATIVE (NEGATIVE); LEUKOCYTE ESTERASE ,URINE NEGATIVE (NEGATIVE); NITRITE, URINE NEGATIVE (NEGATIVE); PH,URINE 6.5 (5.0-8.0); PROTEIN URINE NEGATIVE (NEGATIVE); UROBILINOGEN,URINE 0.2 (0.2-1.0)
[2023-02-13 16:27] LABS: BASOPHILS % (AUTO) 0.8 % (0.0-2.0); EOSINOPHILS % (AUTO) 0.5 % (0.0-4.0); LYMPHOCYTES # (AUTO) 0.8 K/uL (1.0-5.5); LYMPHOCYTES % (AUTO) 15.7 % (20.5-51.5); MEAN CORPUSCULAR HEMOGLOBIN 25 pg (27-31); MEAN CORPUSCULAR HGB CONC 31 % (32-36); MEAN CORPUSCULAR VOLUME 79 fL (79.0-98.0); MONOCYTES # (AUTO) 0.5 K/uL (0.0-1.0); MONOCYTES % (AUTO) 9.3 % (1.7-9.3); NEUTROPHILS # (AUTO) 3.7 K/uL (1.8-7.7); NEUTROPHILS % (AUTO) 73.7 % (40.0-70.0); PLATELET COUNT (AUTO) 282 K/uL (130-430); RED BLOOD CELL COUNT(AUTO) 2.56 MIL/uL (4.2-6.2); RED CELL DISTRIBUTION WIDTH 16.6 % (9.0-15.0)
[2023-02-13 16:28] LABS: BARBITURATE, URINE NEGATIVE (NEG <=200); BENZODIAZEPINE, URINE NEGATIVE (NEG <=150); CANNABINOID, URINE NEGATIVE (NEG <=50); COCAINE, URINE NEGATIVE (NEG <=150); METHAMPHETAMINES SCREEN,URINE NEGATIVE (NEG <=500); OPIATE, URINE NEGATIVE (NEG <=100); PHENCYCLIDINE SCREEN,URINE NEGATIVE (NEG <=25); UR TRICYCLIC ANTIDEPRESSANTS NEGATIVE (NEG <=300); URINE AMPHETAMINE NEGATIVE (NEG <=500); URINE METHADONE NEGATIVE (NEG <=200); URINE OXYCODONE SCREEN NEGATIVE (NEG <=100); URINE PROPOXYPHENE SCREEN NEGATIVE (NEG <=300)
[2023-02-13 16:36] LABS: HEMATOCRIT 20.2 % (36-48); HEMOGLOBIN 6.3 g/dL (12.0-16.0)
[2023-02-13 16:43] LABS: ANION GAP 7 (5-15); CALCIUM 8.1 mg/dL (8.4-11.0); CHLORIDE 100 mmol/L (98-107); CREATININE 1.24 mg/dL (0.55-1.30); GFR AFRICAN AMERICAN 55 mL/min (>90); GLUCOSE 98 mg/dL (70-99); UREA NITROGEN, BLOOD 29 mg/dL (8-21)
[2023-02-13 16:44] LABS: PROTHROMBIN TIME 10.8 SECS (9.5-12.5)
[2023-02-13 16:50] LABS: ALANINE AMINOTRANSFERASE 10 U/L (12-78); ALBUMIN 2.8 g/dL (3.4-4.8); ALCOHOL, BLOOD 5 mg/dL (<10); ASPARTATE AMINOTRANSFERASE 8 U/L (10-37); TOTAL BILIRUBIN 0.1 mg/dL (0.0-1.0)
[2023-02-13 17:01] LABS: FREE T4 (FREE THYROXINE) 1.2 ng/dL (0.6-1.6); THYROID STIMULATING HORMONE 0.76 uIu/mL (0.34-4.82)
[2023-02-13 22:15] VITALS: BP_SYST 129
[2023-02-13] MEDS ORDERED: HALOPERIDOL LACTATE 5 MG/ML VIAL IM ONE ×2 (22:45)
[2023-02-13] MEDS ORDERED: LORazepam 2 MG/ML VIAL IM ONE (23:30)
[2023-02-14 02:38] VITALS: BP_SYST 140
[2023-02-14 05:41] LABS: BASOPHILS % (AUTO) 0.6 % (0.0-2.0); EOSINOPHILS # (AUTO) 0.1 K/uL (0.0-0.4); EOSINOPHILS % (AUTO) 1.6 % (0.0-4.0); HEMATOCRIT 26.2 % (36-48); HEMOGLOBIN 8.4 g/dL (12.0-16.0); LYMPHOCYTES # (AUTO) 1.1 K/uL (1.0-5.5); LYMPHOCYTES % (AUTO) 23.3 % (20.5-51.5); MEAN CORPUSCULAR HEMOGLOBIN 26 pg (27-31); MEAN CORPUSCULAR HGB CONC 32 % (32-36); MEAN CORPUSCULAR VOLUME 80 fL (79.0-98.0); MONOCYTES # (AUTO) 0.6 K/uL (0.0-1.0); MONOCYTES % (AUTO) 12.1 % (1.7-9.3); NEUTROPHILS # (AUTO) 2.9 K/uL (1.8-7.7); NEUTROPHILS % (AUTO) 62.4 % (40.0-70.0); PLATELET COUNT (AUTO) 290 K/uL (130-430); RED BLOOD CELL COUNT(AUTO) 3.28 MIL/uL (4.2-6.2); RED CELL DISTRIBUTION WIDTH 16.3 % (9.0-15.0); WHITE BLOOD COUNT (AUTO) 4.7 K/uL (4.8-10.8)
[2023-02-14 06:12] LABS: CALCIUM 8.7 mg/dL (8.4-11.0); CREATININE 1.05 mg/dL (0.55-1.30)
[2023-02-14 06:23] VITALS: BP_SYST 130
[2023-02-14 06:25] LABS: TOTAL IRON BIND. CAPACITY 613 ug/dL (250-450)
[2023-02-14] MEDS: LEVOTHYROXINE SODIUM 0.088 MG TABLET PO SCH (06:31)
[2023-02-14 08:00] VITALS: BP_SYST 104
[2023-02-14] MEDS ORDERED: NON-FORMULARY MEDICATION (Cranberry Fruit (Cranberry) 1 TAB) PO SCH (09:00)
[2023-02-14] MEDS: MEGESTROL ACETATE 400 MG/10 ML UDC PO SCH ×2 (10:12→21:56)
[2023-02-14] MEDS: DOCUSATE SODIUM 250 MG CAPSULE PO SCH ×2 (10:13→21:56)
[2023-02-14] MEDS: DIVALPROEX SODIUM 125 MG CAP.(DEPAKOTE SPRINKLE) PO SCH ×2 (10:13→21:56)
[2023-02-14] MEDS: FERROUS SULFATE 325 MG TABLET.DR PO SCH ×2 (10:14→21:56)
[2023-02-14] MEDS: KCL 20 mEq in D5/0.45NS 1000mL 1,000 ML IV SCH ×2 (10:20→10:54)
[2023-02-14 11:31] VITALS: BP_SYST 133
[2023-02-14 15:28] VITALS: BP_SYST 113
[2023-02-14 20:00] VITALS: BP_SYST 113
[2023-02-15] VITALS: BP_SYST 127
[2023-02-15] MEDS: KCL 20 mEq in D5/0.45NS 1000mL 1,000 ML IV SCH ×2 (00:30→15:07)
[2023-02-15] MEDS: LEVOTHYROXINE SODIUM 0.088 MG TABLET PO SCH (06:56)
[2023-02-15 08:00] VITALS: BP_SYST 127
[2023-02-15 08:07] LABS: BASOPHILS # (AUTO) 0.1 K/uL (0.0-0.2); BASOPHILS % (AUTO) 0.4 % (0.0-2.0); EOSINOPHILS % (AUTO) 0.4 % (0.0-4.0); HEMATOCRIT 29.6 % (36-48); HEMOGLOBIN 9.5 g/dL (12.0-16.0); LYMPHOCYTES # (AUTO) 1.3 K/uL (1.0-5.5); LYMPHOCYTES % (AUTO) 10.3 % (20.5-51.5); MEAN CORPUSCULAR HEMOGLOBIN 26 pg (27-31); MEAN CORPUSCULAR HGB CONC 32 % (32-36); MEAN CORPUSCULAR VOLUME 81 fL (79.0-98.0); MONOCYTES # (AUTO) 0.8 K/uL (0.0-1.0); MONOCYTES % (AUTO) 6.9 % (1.7-9.3); NEUTROPHILS # (AUTO) 10.1 K/uL (1.8-7.7); PLATELET COUNT (AUTO) 266 K/uL (130-430); RED BLOOD CELL COUNT(AUTO) 3.63 MIL/uL (4.2-6.2); RED CELL DISTRIBUTION WIDTH 17.1 % (9.0-15.0)
[2023-02-15 08:11] LABS: CALCIUM 8.5 mg/dL (8.4-11.0); CREATININE 1.03 mg/dL (0.55-1.30)
[2023-02-15 08:51] LABS: WHITE BLOOD COUNT (AUTO) 12.3 K/uL (4.8-10.8)
[2023-02-15] MEDS: MEGESTROL ACETATE 400 MG/10 ML UDC PO SCH ×2 (09:36→20:56)
[2023-02-15] MEDS: FERROUS SULFATE 325 MG TABLET.DR PO SCH ×2 (09:37→20:57)
[2023-02-15] MEDS: DIVALPROEX SODIUM 125 MG CAP.(DEPAKOTE SPRINKLE) PO SCH ×2 (09:37→20:57)
[2023-02-15] MEDS: DOCUSATE SODIUM 250 MG CAPSULE PO SCH (09:42)
[2023-02-15 10:06] LABS: FOLATE (FOLIC ACID) 19.1 ng/mL (>3.0)
[2023-02-15 11:42] VITALS: BP_SYST 139
[2023-02-15 18:01] VITALS: BP_SYST 136
[2023-02-15 20:00] VITALS: BP_SYST 128
[2023-02-15] MEDS: DOCUSATE SODIUM 100 MG/10 ML UDC PO SCH (20:56)
[2023-02-16] VITALS: BP_SYST 131
[2023-02-16] MEDS: KCL 20 mEq in D5/0.45NS 1000mL 1,000 ML IV SCH ×2 (02:20→15:34)
[2023-02-16] MEDS: LEVOTHYROXINE SODIUM 0.088 MG TABLET PO SCH (06:15)
[2023-02-16 08:09] LABS: BASOPHILS # (AUTO) 0.1 K/uL (0.0-0.2); BASOPHILS % (AUTO) 0.5 % (0.0-2.0); EOSINOPHILS % (AUTO) 0.3 % (0.0-4.0); HEMATOCRIT 30.6 % (36-48); HEMOGLOBIN 9.8 g/dL (12.0-16.0); LYMPHOCYTES # (AUTO) 1.1 K/uL (1.0-5.5); LYMPHOCYTES % (AUTO) 10.2 % (20.5-51.5); MEAN CORPUSCULAR HEMOGLOBIN 26 pg (27-31); MEAN CORPUSCULAR HGB CONC 32 % (32-36); MEAN CORPUSCULAR VOLUME 82 fL (79.0-98.0); MONOCYTES # (AUTO) 0.9 K/uL (0.0-1.0); MONOCYTES % (AUTO) 8.2 % (1.7-9.3); NEUTROPHILS # (AUTO) 8.8 K/uL (1.8-7.7); NEUTROPHILS % (AUTO) 80.8 % (40.0-70.0); PLATELET COUNT (AUTO) 261 K/uL (130-430); RED BLOOD CELL COUNT(AUTO) 3.76 MIL/uL (4.2-6.2); RED CELL DISTRIBUTION WIDTH 17.7 % (9.0-15.0); WHITE BLOOD COUNT (AUTO) 10.8 K/uL (4.8-10.8)
[2023-02-16 08:11] LABS: CALCIUM 8.6 mg/dL (8.4-11.0); CREATININE 1.11 mg/dL (0.55-1.30)
[2023-02-16] MEDS: MEGESTROL ACETATE 400 MG/10 ML UDC PO SCH ×2 (09:42→20:05)
[2023-02-16] MEDS: DOCUSATE SODIUM 100 MG/10 ML UDC PO SCH ×2 (09:42→20:05)
[2023-02-16] MEDS: FERROUS SULFATE 325 MG TABLET.DR PO SCH ×2 (09:42→20:05)
[2023-02-16] MEDS: DIVALPROEX SODIUM 125 MG CAP.(DEPAKOTE SPRINKLE) PO SCH ×2 (09:43→20:06)
[2023-02-16 11:51] VITALS: BP_SYST 123
[2023-02-16] MEDS ORDERED: MILK OF MAGNESIA 30 ML UDC PO PRN (14:45)
[2023-02-16] MEDS ORDERED: MILK OF MAGNESIA 30 ML UDC PO ONE (14:45)
[2023-02-16 18:41] VITALS: BP_SYST 131
[2023-02-16] MEDS ORDERED: SENNOSIDES 8.6 MG TABLET PO SCH (21:00)
[2023-02-17] VITALS: BP_SYST 118
[2023-02-17] MEDS: KCL 20 mEq in D5/0.45NS 1000mL 1,000 ML IV SCH (06:13)
[2023-02-17] MEDS: LEVOTHYROXINE SODIUM 0.088 MG TABLET PO SCH (06:13)
[2023-02-17 09:03] VITALS: BP_SYST 124
[2023-02-17] MEDS: MEGESTROL ACETATE 400 MG/10 ML UDC PO SCH (09:09)
[2023-02-17] MEDS: FERROUS SULFATE 325 MG TABLET.DR PO SCH (09:09)
[2023-02-17] MEDS: DOCUSATE SODIUM 100 MG/10 ML UDC PO SCH (09:09)
[2023-02-17] MEDS: DIVALPROEX SODIUM 125 MG CAP.(DEPAKOTE SPRINKLE) PO SCH (09:11)
[2023-02-17 11:09] VITALS: BP_SYST 127
[2023-02-17 16:01] VITALS: BP_SYST 127
[2023-02-17 17:20] VITALS: BP_SYST 124
== END 2023-02-17 18:24 | DRG 811 ==
LOC: SED 13:23 → STU 18:16 → SMU 02-15 19:23
PROVIDERS: ADMIT Family Medicine; ATTEND Family Medicine
PROC: 30233N1 Transfusion of Nonautologous Red Blood Cells into Peripheral Vein, Percutaneous Approach (ICD-10-PCS; principal; 2023-02-14)
DX: D64.9 Anemia, unspecified (principal); E43 Unspecified severe protein-calorie malnutrition; I48.92 Unspecified atrial flutter; E86.0 Dehydration; E03.9 Hypothyroidism, unspecified; Z20.822 Contact with and (suspected) exposure to COVID-19; F03.90 Unspecified dementia, unspecified severity, without behavioral disturbance, psychotic disturbance, mood disturbance, and anxiety; Z68.28 Body mass index [BMI] 28.0-28.9, adult; K59.00 Constipation, unspecified; I10 Essential (primary) hypertension; E11.9 Type 2 diabetes mellitus without complications; E78.5 Hyperlipidemia, unspecified
CPT/HCPCS: 36415; 70450-TC; 71045; 76376; 80048; 80053; 80307; 81003; 82607; 82728; 82746; 83540; 83550; 83735; 83880; 84439; 84443; 84484; 85025; 85610-TC; 85730-TC; 86886; 86900; 86901; 86920; 87081; 93005; 99285; G0378; G0482; J1630; J2060; P9021